=== PATIENT | male | born 1985 | race Caucasian/White ===

== ENCOUNTER 2020-02-01 14:15 | Outpatient (CLI) | payer OTHER ==
--- NOTE | 2020-02-01 15:10 | SLEEP CARE CONSULTATION ---
Information from patient questionnaire entered by Yissel Grider. I have reviewed and concur with the information entered by Yissel Grider. This document represents the service I personally performed and the decisions made by me, Cass Dowell MD, [facility]. History of Present Illness Service Date and Time: 02/01/2020 1415 Reason for Visit: New patient Chief Complaint: reports: Insomnia, Unrefreshed sleep, Excessive daytime sleepiness Duration of Symptoms: 12 years Usual bedtime: 12 am Time it takes to fall asleep: 3-4 hours Snores at night: Yes (sometimes) Observed to quit breathing while asleep: No Sleeps alone due to snoring: No Number of times waking at night: 0 Toss, Turn, or Twitch while sleeping: Yes Recalls having dreams: No Usually gets out of bed at: 5:30 AM Feels refreshed in the morning: No Morning headache: No Sleepy or fatigued during the day: Yes Ever fallen asleep while driving: No Takes day naps: No Dreams during day naps: No Prior sleep studies: No Additional HPI information: Mr. Rivera complains of fatigue and insomnia. It takes him 2 hours to fall asleep when going to bed at 10 pm. He wakes up at 5:30 am to go to work. On weekends he wakes up at 8 am. He does not feel sleepy during the day. The [place] Sleepiness Scale score is 3. He does snore at night. He has restless leg sensation. - Parasomnia Symptoms Ever been unable to move upon waking from sleep: No Ever felt weak in the knees when startled or emotional: No Bothered by creepy, crawly, restless sensations in legs: Yes Problems with memory or concentration: Yes Subjective Initial [place] Sleepiness Scale score: 3 (in 2020) Social History The patient's occupation is a [employer]. Patient is and lives in [place]. Have you smoked in the past 12 months: Yes Cigarettes per day (20/pack): 20 Years of smokin Smoking Pack Years: 20.0 Alcohol use: No Caffeine use: Yes Caffeine amount and frequency: 5 cans of Mt. Dew Allergies and Home Medications Drug allergies reviewed: Yes (NKDA) Home medication list reviewed: Yes (Advil PM) Review of Systems Weight gain over past 5 years: 40 Cardiovascular: denies: high blood pressure, palpitations, chest pain, irregular heart rate or pulse, leg or foot swelling, have to sleep sitting up, other Respiratory: denies: shortness of breath, wheeze, sputum production, chronic cough, other Gastrointestinal: denies: heartburn, difficulty swallowing, nausea, vomitting, diarrhea, abdominal pain, other Urinary: denies: incontinence, frequency, urgency, impotence, other Neurological: denies: headaches, seizure, head trauma, disorientation, speech dysfunction, gait or balance problems, fainting or unconsciousness, other Ear/Nose/Throat: denies: nasal congestion, sinus problems, nose bleeds, dry mouth/throat, hoarseness, injury to nose, tonsillectomy, wisdom teeth removed, other Endocrine: denies: thyroid disease, history of goiter, sluggishness, too hot or cold, excessive thirst, increased appetite, increased urination, unexplained weakness, other Musculoskeletal: denies: joint pain, neck pain, back pain, joint swelling, muscle pain or cramping, mobility problems, other Immunologic: denies: sneezing, rash, itching, allergies to food or environment, other Physical Exam Vital signs obtained and entered by: Exam was deferred due to the COVID-19 pandemic Height: 6 ft 1 in Weight: 195 lb Body Mass Index: 25.7 BMI Classification: Overweight Impression and Plan IMPRESSION: 1. Possible Obstructive Sleep Apnea-Hypopnea Syndrome, as suggested by history of loud snoring, unrefreshed sleep, cognitive impairment, and persistent fatigue. Narrow oropharynx and obesity are common predisposing factors for obstructive sleep apnea-hypopnea syndrome. Pathophysiology of sleep-disordered breathing was discussed. I recommend proceeding to polysomnography to confirm the diagnosis and to assess severity. If he has significant sleep disordered breathing, a manual CPAP titration study will also be performed to find the optimal treatment pressure. I informed the patient of what the sleep studies involve and after some discussion, he agreed to proceed. Plan: 1. Schedule an in-laboratory polysomnography + manual CPAP titration study 2. Avoid long distance driving or when feeling sleepy. 3. Avoid alcohol, sedative and muscle relaxant around bedtime. 4. Attempt to lose some weight. 5. Return in 1 to 2 weeks after the study to discuss results and initiate therapy. Visit Type: In Office Time Spent with Patient (minutes): 15 Provider Statement: I spent 100% of the Face to Face Visit with the patient with greater than 50% spent counseling the patient and coordination of care.
== END 2020-02-01 14:16 | disposition home or self-care (01) ==
LOC: SC 14:15
PROVIDERS: ATTEND Internal Medicine Pulmonary Disease
DX: R06.83 Snoring (principal); G47.00 Insomnia, unspecified; G47.8 Other sleep disorders; R53.83 Other fatigue; G25.81 Restless legs syndrome; E66.3 Overweight; Z68.25 Body mass index [BMI] 25.0-25.9, adult; F17.210 Nicotine dependence, cigarettes, uncomplicated
CPT/HCPCS: 99203; 99212

== ENCOUNTER 2020-02-09 19:21 | Outpatient (CLI) | payer OTHER | END 2020-02-09 19:22 | disposition home or self-care (01) | LOC: SC 19:21 | PROVIDERS: ATTEND Internal Medicine Pulmonary Disease | DX: G47.33 Obstructive sleep apnea (adult) (pediatric) (principal) | CPT/HCPCS: 95810 ==

== ENCOUNTER 2020-02-15 15:03 | Outpatient (CLI) | payer OTHER ==
--- NOTE | 2020-02-15 21:02 | SLEEP CARE CONSULTATION ---
Information from patient questionnaire entered by Agustina Espino. I have reviewed and concur with the information entered by Agustina Espino. This document represents the service I personally performed and the decisions made by me, Cass Dowell MD, [facility]. History of Present Illness Service Date and Time: 02/15/2020 1503 Initial [place] Sleepiness Scale score: 3 Additional HPI information: HPI: Mr. Rivera returns for a follow up of the sleep study he had on 02-09-2020. The polysomnography showed that the patient had poor sleep efficiency due to sleep onset insomniathe patient was awake during the first half of the night.. Despite moderate sleep fragmentation, the sleep architecture was normal. Respiratory monitoring showed mild obstructive sleep apnea-hypopnea (AHI = 6.7) associated with frequent arousals, oxyhemoglobin desaturation and mild hypoxia ( leonel oxygen saturation of 87%). The respiratory events occurred almost exclusively during supine sleep (supine AHI = 10.3; non-supine = 0.80). Snore was infrequent and light in intensity. There was no significant periodic leg movement of sleep. Cardiac rhythm was normal sinus rhythm without significant arrhythmia. No abnormal behavior (parasomnia) observed during the night. The patient was informed of these findings. I explained to him the pathophysiology behind obstructive sleep apnea. We then spent quite a bit of time discussing different treatment options. For mild obstructive sleep apnea, surgery and oral appliance are alternatives to nasal CPAP therapy but in moderate or severe cases, nasal CPAP is the most effective and reliable treatment. Weight loss in an obese individual is strongly recommended. After some discussion, he opted to go with the nasal CPAP therapy. I explained to him how CPAP machine works and what to expect when using the machine. IMPRESSION: 1. Obstructive Sleep Apnea-Hypopnea Syndrome, mild, associated with mild hypoxemia and sleep fragmentation. Possibly, this is the cause of the patients symptoms of frequent awakenings, unrefreshed sleep, and excessive daytime sleepiness. As mentioned above, the patient will be started on an autoCPAP set at 5 - 15 cmH2O. Depending on his response and compliance he may need an overnight CPAP titration study. 2. Insomnia, most likely due to his irregular sleep-wake pattern. On weeknights, he wakes up at 4 am but on weekends, 7 8 am. I asked him to start waking up the same time every day. PLAN: 1. Prescription made for an autoCPAP, heated humidifier, and related supplies. He will be referred to a nationwide durable medical supplier because he is moving to [place] in 2 weeks. 2. Attempt to lose weight and avoid alcohol consumption near bedtime. 3. Maintain a regular wake up time and spend no more than 8 hours in bed at night. Avoid naps. 4. Follow up with a sleep physician at his new location. Allergies and Home Medications Drug allergies reviewed: Yes Home medication list reviewed: Yes Review of Systems Review of systems same as previous: Yes Physical Exam Vital signs obtained and entered by: To comply with the COVID-19 precautions, detailed physical exam was not per Height: 6 ft 1 in Impression and Plan Visit Type: In Office Time Spent with Patient (minutes): 15 Provider Statement: I spent 100% of the Face to Face Visit with the patient with greater than 50% spent counseling the patient and coordination of care.
== END 2020-02-15 15:04 | disposition home or self-care (01) ==
LOC: SC 15:03
PROVIDERS: ATTEND Internal Medicine Pulmonary Disease
DX: G47.33 Obstructive sleep apnea (adult) (pediatric) (principal); G47.00 Insomnia, unspecified